=== PATIENT | female | born 1970 | race Asian ===

== ENCOUNTER 2016-05-13 18:09 | Emergency (ER) | payer BC ==
[~2016-05-13] VITALS: Ht 175.3 cm; Wt 95.3 kg
[~2016-05-13 18:09] MED LIST: GLIM4TAB PO; METF500T PO; ZESTRIL40 MG OR
== END 2016-05-13 20:06 | disposition home or self-care (01) ==
LOC: ED 18:09
DX: M79.1 Myalgia (principal)
CPT/HCPCS: 87081; 87804; 87880; 96372; 99283; J1885

== ENCOUNTER 2021-09-08 10:40 | Emergency (ER) | payer OTHER ==
[~2021-09-08] VITALS: Ht 175.3 cm; Wt 95.3 kg
[2021-09-08 10:57] VITALS: TEMP 97.8
[2021-09-08 13:50] VITALS: BP 135/81
== END 2021-09-08 13:50 | disposition home or self-care (01) ==
LOC: ED 10:40
DX: M50.122 Cervical disc disorder at C5-C6 level with radiculopathy (principal); W17.2XXA Fall into hole, initial encounter; Y92.481 Parking lot as the place of occurrence of the external cause
CPT/HCPCS: 96372; 99283; J1885; J2930

== ENCOUNTER 2021-11-11 12:56 | Outpatient (CLI) | payer OTHER | END 2021-11-11 21:57 | disposition home or self-care (01) | LOC: MRI 12:56 | PROVIDERS: ATTEND Nurse Practitioner Family | DX: M54.89 Other dorsalgia (principal); M54.10 Radiculopathy, site unspecified; M54.2 Cervicalgia; R51.9 Headache, unspecified ==